=== PATIENT | male | born 1955 | race Two or more races ===

== ENCOUNTER 2019-12-02 13:03 | Outpatient (CLI) | payer MEDICARE ==
[2019-12-02 15:09] LABS: ALBUMIN 2.8 g/dL (3.4-5.0); BILIRUBIN,TOTAL 0.1 mg/dL (0.2-1.0); CALCIUM, SERUM 8.8 mg/dL (8.5-10.1); MAGNESIUM 2.3 mg/dL (1.8-2.4); PHOSPHORUS 3.2 mg/dL (2.5-4.9); POTASSIUM 4.3 mmol/L (3.5-5.1); TOTAL PROTEIN, SERUM 7.5 g/dL (6.4-8.2)
[2019-12-02 15:10] LABS: BASOPHILS # (AUTO) 0.1 /CMM (0.0-0.2); BASOPHILS % (AUTO) 1.3 % (0.0-2.0); HEMATOCRIT 41 % (39-51); HEMOGLOBIN 13.3 g/dL (13.5-17.5); LYMPHOCYTES # (AUTO) 0.9 /CMM (0.8-4.8); LYMPHOCYTES % (AUTO) 17.3 % (20.0-44.0); MEAN CORPUSCULAR HGB CONC 32 g/dl (31.0-36.0); MEAN CORPUSCULAR VOLUME 97 fL (80-96); MONOCYTES # (AUTO) 0.3 /CMM (0.1-1.30); MONOCYTES % (AUTO) 6.5 % (2.0-12.0); NEUTROPHILS # (AUTO) 3.9 /CMM (1.8-8.9); NEUTROPHILS % (AUTO) 72.9 % (43.0-81.0); PLATELET COUNT (AUTO) 213 /CMM (150-450); RED BLOOD CELL COUNT(AUTO) 4.25 MIL/uL (4.5-6.0); WHITE BLOOD COUNT (AUTO) 5.3 K/uL (4.3-11.0)
[2019-12-02 15:13] LABS: APPEARANCE,URINE CLEAR (CLEAR); BILIRUBIN,URINE NEGATIVE (NEGATIVE); BLOOD, URINE NEGATIVE Ery/uL (NEGATIVE); COLOR,URINE YELLOW (YELLOW); LEUKOCYTE ESTERASE ,URINE NEGATIVE (NEGATIVE); NITRITE, URINE NEGATIVE (NEGATIVE); PROTEIN,URINE NEGATIVE (NEGATIVE); UGLUCOSE NEGATIVE (NEGATIVE); UROBILINOGEN,URINE 0.2 EU/dL (0.2)
[2019-12-02 15:17] LABS: THYROID STIMULATING HORMONE 1.782 uIU/mL (0.358-3.74)
== END 2019-12-02 23:59 | disposition home or self-care (01) ==
LOC: MSC 13:03
PROVIDERS: ATTEND Internal Medicine
DX: I95.9 Hypotension, unspecified (principal); R00.1 Bradycardia, unspecified; R29.6 Repeated falls; Q90.9 Down syndrome, unspecified; H02.30 Blepharochalasis unspecified eye, unspecified eyelid; Z86.79 Personal history of other diseases of the circulatory system; Z87.39 Personal history of other diseases of the musculoskeletal system and connective tissue
CPT/HCPCS: 36415; 80053; 81001; 82607; 83735; 84100; 84443; 85025; 85652; 87077; 87086; 87186; G0463; 81000-TC

== ENCOUNTER 2020-02-20 13:17 | Outpatient (CLI) | payer MEDICARE | END 2020-02-20 23:59 | disposition home or self-care (01) | LOC: MSC 13:17 | PROVIDERS: ATTEND Internal Medicine | DX: L21.9 Seborrheic dermatitis, unspecified (principal); H04.203 Unspecified epiphora, bilateral; R44.3 Hallucinations, unspecified; H02.30 Blepharochalasis unspecified eye, unspecified eyelid; Q90.9 Down syndrome, unspecified; I73.00 Raynaud's syndrome without gangrene; R00.1 Bradycardia, unspecified; R29.6 Repeated falls; Z79.899 Other long term (current) drug therapy ==